=== PATIENT | male | born 1930 | race Caucasian/White ===

== ENCOUNTER 2017-11-21 12:56 | Inpatient (IN) | payer OTHER, BC ==
[~2017-11-21] VITALS: Ht 172.7 cm; Wt 56.6 kg
--- NOTE | ~2017-11-21 | EKG ---
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
--- NOTE | ~2017-11-21 | CATHLAB ---
[facility] [employer] [place] [address] INVASIVE PROCEDURE REPORT Name: MEGAN LUCAS Room #: 200-I ADM IN ..#: [id number] Admission: 11/21/17 Attend Phys: Wong Davidson MD Discharge: Date of : 34 Date of Service: 11/22/17 1450 Report #: [id number] THIS REPORT FOR: //name// APPROVED REPORT Study performed: 11/22/2017 09:36:19 Patient Status: In-Patient Room #: Event Personnel: Sin Kovacs Director Field Services, Amanda Neville RN RN, Maico Quintero Monitor, Carolyn Boone RTR, DOCK CLERK Scrub Exam: Insertion of Dual Chamber Permanent Pacemaker Indications: Complete Heart Block The patient is a 87 year-old male with a history of fatigue and newly diagnosed complete heart block.. Conscious Sedation Start time: 10.14 End Time: 11.16 Versed 2 mg demoral 25mgs ivp Implanted Devices: 1. Generator: [employer] model [id number] serial number [id number] 2. Atrial lead [employer]: Model 3592BF5/46 serial number [id number] 3. Ventricular lead: [employer] model 2088TC/54-year-old number [id number] Procedure The patient underwent informed consent. We discussed the details of the procedure including the risks, which include, but not limited to bleeding, infection, vascular damage, cardiac perforation, and pneumothorax. He understood these risks and was willing to proceed. As such, he was brought to the EP/Cardiac Catheterization laboratory in a fasting and sedated state and prepped and draped in a The patient underwent conscious sedation, with no related complications. The patient was brought to the EP/Cardiac Catheterization laboratory and the right chest and shoulder were prepped and draped in a sterile manner. During this case, Fluoroscopy and no contrast were used for imaging. The right subclavian region was infiltrated with 2% Lidocaine subcutaneous anesthesia. A transverse incision was made in the right [address] [address] INVASIVE PROCEDURE REPORT Name: MEGAN LUCAS Room #: 200-I [facility] IN ..#: [id number] Admission: 11/21/17 Attend Phys: Wong Davidson MD Discharge: Date of : 34 Date of Service: 11/22/17 1450 Report #: [id number] upper chest cavity. The subcutaneous pocket was formed via blunt dissection. Percutaneous venous access was achieved and an introducer sheath was inserted into the right Subclavian vein. Sheaths were positions using the modified Seldinger technique Through the introducer sheaths the atrial and ventricular lead wires were positioned in the right atrial appendage and right ventricular apex respectively. Capturing and sensing thresholds were verified. The ventricular lead was interrogated and knees are as below with significant current of injury which resolved with time No venogram was performed Electrode Parameters P Wave: 3.6 mV R Wave: 11.5 mV Atrial Threshold: 0.5. At a pulse width of 0.4 ms Ventricular Threshold: 0.75 V at 0.4 ms Atrial Resistance: 600 ohms Ventricular Resistance: 718 ohms Dual Chamber The atrial and ventricular leads were then secured using 2.0 ethibond sutures. The subcutaneous pocket was irrigated with ancef antibiotic solution.The atrial and ventricular leads were attached to the appropriate receptacles on the pulse generator and set screws firmly tightened to insure adequate contact and stability. The lead and pulse generator were placed into the subcutaneous pocket. Sharp and sponge counts were confirmed to be correct. At this time the pocket was closed subcutaneously with a 2.0 Nurolon and the skin was closed with a 3.0 Vicryl. The operative site was dressed in sterile fashion with steri strips, 4 x 4 and OpSite and the patient was transferred to the floor in stable condition. Complications The patient tolerated the procedure well and there were no complications associated with the procedure. Findings Specimens Removed: No Conclusion 1. Successful implantation of a dual-chamber pacemaker via the right innominate vein [facility] [address] [place] [address] INVASIVE PROCEDURE REPORT Name: MEGAN LUCAS Room #: 200-I [facility] IN .R.#: [id number] Admission: 11/21/17 Attend Phys: Wong Davidson MD Discharge: Date of : 34 Date of Service: 11/22/17 1450 Report #: [id number] Recommendations 1. Routine post pacer implantation protocol <ELECTRONICALLY SIGNED> By: Sin Kovacs MD 11/22/171449 49 49 Sin Kovacs MD /INF
--- NOTE | ~2017-11-21 | 2DMMODE ---
[facility] [address] [place] [address] 2 D/M-MODE ECHOCARDIOGRAM Name: MEGAN LUCAS Room #: 200-I ADM IN ..#: [id number] Admission: 11/21/17 Attend Phys: Wong Davidson MD Discharge: Date of : 34 Date of Service: 11/22/17 1507 Report #: [id number] THIS REPORT FOR: //name// APPROVED REPORT Study performed: 11/22/2017 13:31:05 EXAM: Comprehensive 2D, Doppler, and color-flow Echocardiogram Patient Location: Bedside Room #: 200 Status: routine BSA: 1.70 HR: 60 bpm BP: 210/100 mmHg Other Information Study Quality: Adequate Technically limited study due to pectus, limited mobility. Low parasternal window. Indications Complete heart block status post pacemaker 11/22/2017. 2D Dimensions RVDd: 36.39 mm LVEF(%): 58.98 (>50%) IVSd: 11.22 (7-11mm) LVOT Diam: 21.97 (18-24mm) LVDd: 40.14 mm PWd: 10.15 (7-11mm) Ascending Ao: 41.88 (22-36mm) LVDs: 27.77 (25-40mm) Aortic Root: 41.58 mm Jurado's LVEF: 58.98 % Volumes Left Atrial Volume (Systole) Single Plane 4CH: 37.24 mL Single Plane 2CH: 25.99 mL LA ESV Index: 19.00 mL/m2 Aortic Valve AoV Peak Bishop.: 0.87 m/s AO Peak Gr.: 3.03 mmHg LVOT Max P.67 mmHg LVOT Max V: 0.82 m/s RHIANNA Vmax: 3.56 cm2 Mitral Valve E/A Ratio: 0.8 [facility] [place] [address] 2 D/M-MODE ECHOCARDIOGRAM Name: MEGAN LUCAS Room #: 200-I ADM IN .R.#: [id number] Admission: 11/21/17 Attend Phys: Wong Davidson MD Discharge: Date of : 34 Date of Service: 11/22/17 1507 Report #: [id number] MV Decel. Time: 333.65 ms MV E Max Bishop.: 0.55 m/s MV A Bishop.: 0.73 m/s MV PHT: 96.76 ms Tricuspid Valve TR Peak Bishop.: 2.66 m/s RAP Estimate: 5.00 mmHg TR Peak Gr.: 28.21 mmHg PA Pressure: 33.00 mmHg Left Ventricle The left ventricle is normal size. Paradoxical septal motion consistent with paced rhythm. There is normal left ventricular wall thickness. Left ventricular systolic function is normal. LVEF is >55%. Mild diastolic dysfunction is present (impaired relaxation pattern). Right Ventricle The right ventricle is normal size. The right ventricular systolic function is normal. Pacemaker lead is present in the right ventricle. Atria The left atrium size is normal. The right atrium size is normal. Aortic Valve The aortic valve is not well visualized. Mild aortic regurgitation. There is no aortic valvular stenosis. Mitral Valve The mitral valve is normal in structure. Trace to mild mitral regurgitation. Tricuspid Valve The tricuspid valve is normal in structure. Mild tricuspid regurgitation. Estimated PAP is 33mmHg. Pulmonic Valve Pulmonic valve is not well visualized. 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 Ascending aorta is not well visualized. IVC is normal in size and collapses >50% with inspiration. Pericardium [facility] [address] [place] [address] 2 D/M-MODE ECHOCARDIOGRAM Name: MEGAN LUCAS Room #: 200-I [facility] IN .R.#: [id number] Admission: 11/21/17 Attend Phys: Wong Davidson MD Discharge: Date of : 34 Date of Service: 11/22/17 1507 Report #: [id number] There is no pericardial effusion. <Conclusion> The left ventricle is normal size. LVEF is >55%. Pacemaker lead is present in the right ventricle. The aortic valve is not well visualized. Mild aortic regurgitation. The mitral valve is normal in structure. Trace to mild mitral regurgitation. The tricuspid valve is normal in structure. Mild tricuspid regurgitation. Estimated PAP is 33mmHg. 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 Ascending aorta is not well visualized. There is no pericardial effusion. <ELECTRONICALLY SIGNED> By: Sin Kovacs MD 11/22/17 1507 1507 150 Sin Kovacs MD /INF
[2017-11-21 13:16] VITALS: BP 168/77
[2017-11-21 17:26] VITALS: BP 183/69
[2017-11-21 17:56] LABS: HEMATOCRIT 39.5 % (42.0-52.0); HEMOGLOBIN 13.2 gm/dL (14.0-18.0); MCHC 33.5 g/dL (28.0-37.0); MCV 86.6 fL (80.0-100.0); RBC 4.56 mil/uL (4.50-6.00); RDW 14.5 % (10.5-14.5); WBC 6.7 thou/uL (4.0-11.0)
[2017-11-21 18:09] LABS: CALCIUM 8.6 mg/dL (8.5-10.1); CREATININE 0.8 mg/dL (0.7-1.3); POTASSIUM 4.3 mmol/L (3.5-5.1)
[2017-11-21 18:38] LABS: ABSOLUTE NEUTROPHILS 4.1 thou/uL (1.4-8.2); PLATELET COUNT 84 thou/uL (150-400); PLATELET ESTIMATE DECREASED
[2017-11-21 19:29] VITALS: BP 106/85
[2017-11-21 20:52] VITALS: BP 159/82
[2017-11-22] VITALS (7 sets, daily range): BP systolic 139–210; BP diastolic 70–100
[2017-11-22 04:21] LABS: CALCIUM 8.5 mg/dL (8.5-10.1); CREATININE 0.8 mg/dL (0.7-1.3); HEMATOCRIT 40.8 % (42.0-52.0); HEMOGLOBIN 13.5 gm/dL (14.0-18.0); MCH 28.8 pg (26.0-34.0); MCHC 33.2 g/dL (28.0-37.0); MCV 86.7 fL (80.0-100.0); POTASSIUM 3.7 mmol/L (3.5-5.1); RBC 4.7 mil/uL (4.50-6.00); RDW 14.2 % (10.5-14.5)
[2017-11-22 06:09] LABS: FOLIC ACID 31.3 ng/mL (8.6-58.9)
[2017-11-23 02:55] LABS: HEMATOCRIT 40.4 % (42.0-52.0); HEMOGLOBIN 13.6 gm/dL (14.0-18.0); MCH 28.9 pg (26.0-34.0); MCHC 33.6 g/dL (28.0-37.0); PLATELET COUNT 84 thou/uL (150-400); RDW 14.7 % (10.5-14.5); WBC 7.1 thou/uL (4.0-11.0)
[2017-11-23 03:05] LABS: CALCIUM 8.2 mg/dL (8.5-10.1); CREATININE 0.8 mg/dL (0.7-1.3); POTASSIUM 3.7 mmol/L (3.5-5.1)
[2017-11-23 03:21] LABS: ABSOLUTE NEUTROPHILS 4.9 thou/uL (1.4-8.2); PLATELET ESTIMATE DECREASED
[2017-11-23 04:00] VITALS: BP 114/82
[2017-11-23 12:00] VITALS: BP 136/78
[2017-11-23 13:03] LABS: URINE BLOOD 3+ (Negative); URINE GLUCOSE-RANDOM* NEGATIVE (Negative); URINE KETONES 1+ (Negative); URINE LEUKOCYTES-REFLEX NEGATIVE (Negative); URINE NITRITE-REFLEX NEGATIVE (Negative); URINE PROTEIN (DIPSTICK) 2+ (Negative); URINE SPECIFIC GRAVITY >= 1.030 (1.005-1.035)
[2017-11-23 13:05] LABS: URINE CLARITY TURBID; URINE COLOR RED
[2017-11-23 13:06] LABS: ICTOTEST (BILI CONFIRMATORY) Negative (Negative); URINE BILIRUBIN NEGATIVE (Negative)
[2017-11-23 13:21] LABS: BACTERIA-REFLEX None Seen /HPF (None Seen); CASTS None Seen /LPF (None Seen); CRYSTALS None Seen /LPF (None Seen); SQUAMOUS 0-3 Few /LPF (0-3); URINE RBC >20 Many /HPF (0-2); URINE WBC-REFLEX 0-5 Rare /HPF (0-5)
[2017-11-23 13:22] LABS: MUCUS 4-6 Moderate strn/LPF (None Seen)
[2017-11-23 16:15] VITALS: BP 159/89
[2017-11-23 20:07] VITALS: BP 147/91
[2017-11-24 03:55] LABS: HEMATOCRIT 36.5 % (42.0-52.0); HEMOGLOBIN 12.2 gm/dL (14.0-18.0); MCH 28.8 pg (26.0-34.0); MCHC 33.5 g/dL (28.0-37.0); MCV 86.1 fL (80.0-100.0); PLATELET COUNT 84 thou/uL (150-400); RBC 4.24 mil/uL (4.50-6.00); RDW 13.9 % (10.5-14.5); WBC 6.7 thou/uL (4.0-11.0)
[2017-11-24 04:28] LABS: CALCIUM 8.3 mg/dL (8.5-10.1); CREATININE 0.7 mg/dL (0.7-1.3); POTASSIUM 3.9 mmol/L (3.5-5.1)
[2017-11-24 04:30] LABS: ABSOLUTE NEUTROPHILS 3.6 thou/uL (1.4-8.2); PLATELET ESTIMATE DECREASED
[2017-11-24 04:39] VITALS: BP 138/83
[2017-11-24 08:04] VITALS: BP 142/89
[2017-11-24 11:35] VITALS: BP 151/91
[2017-11-24 21:11] VITALS: BP 152/90
[2017-11-25 04:41] VITALS: BP 148/85
[2017-11-25 07:52] VITALS: BP 166/92
[2017-11-25 11:00] VITALS: BP 140/81
[2017-11-25 15:30] VITALS: BP 151/87
[2017-11-25 19:04] VITALS: BP 188/96
[2017-11-26 05:35] VITALS: BP 172/92
[2017-11-26 08:15] VITALS: BP 165/98
[2017-11-26 11:38] VITALS: BP 164/85
[2017-11-26 16:10] VITALS: BP 142/89
[2017-11-26 19:13] VITALS: BP 141/94
[2017-11-26] MEDS ORDERED: COLACE 100 MG100 MG PO (19:23)
[2017-11-26] MEDS ORDERED: NIFEDIPINE ER30 M1 PO (19:23)
[2017-11-26] MEDS ORDERED: MIRALAX17 GM PO (19:23)
[2017-11-26] MEDS ORDERED: ACETAMINOPHEN325 M1 PO (19:23)
[2017-11-26] MEDS ORDERED: BISAC-EVAC10 MG RECTAL (19:23)
[2017-11-26 19:55] VITALS: BP 141/94
== END 2017-11-26 20:41 | disposition home or self-care (01) | DRG 242 ==
LOC: ER 12:56 → 2N 18:15 → EROBS 18:15 → 2N 18:41
PROVIDERS: Emergency Medicine; Hospitalist
PROC: 02H63JZ Insertion of Pacemaker Lead into Right Atrium, Percutaneous Approach (ICD-10-PCS; principal; 2017-11-22)
PROC: 02HK3JZ Insertion of Pacemaker Lead into Right Ventricle, Percutaneous Approach (ICD-10-PCS; principal; 2017-11-22)
PROC: 0JH606Z Insertion of Pacemaker, Dual Chamber into Chest Subcutaneous Tissue and Fascia, Open Approach (ICD-10-PCS; principal; 2017-11-22)
DX: I44.2 Atrioventricular block, complete (principal); E43 Unspecified severe protein-calorie malnutrition; K92.2 Gastrointestinal hemorrhage, unspecified; Z68.1 Body mass index [BMI] 19.9 or less, adult; K56.41 Fecal impaction; I10 Essential (primary) hypertension; D69.6 Thrombocytopenia, unspecified; Z60.2 Problems related to living alone; F03.90 Unspecified dementia, unspecified severity, without behavioral disturbance, psychotic disturbance, mood disturbance, and anxiety; R45.1 Restlessness and agitation; R41.0 Disorientation, unspecified; Z79.899 Other long term (current) drug therapy
CPT/HCPCS: 10081; 10797

== ENCOUNTER → 2017-11-30 | Outpatient (CLI) | payer OTHER, BC ==
[~2017-11-30] VITALS: Ht 170.2 cm; Wt 58.7 kg
[~2017-11-30] MED LIST: ACETAMINOPHEN325 M1 PO; BISAC-EVAC10 MG RECTAL; COLACE 100 MG100 MG PO; MIRALAX17 GM PO; NIFEDIPINE ER30 M1 PO
[2017-11-30 13:33] VITALS: BP 157/81
== END ==
LOC: SEN 09:02
DX: K59.00 Constipation, unspecified (principal); F17.200 Nicotine dependence, unspecified, uncomplicated; Z72.89 Other problems related to lifestyle

== ENCOUNTER 2018-04-28 02:39 | Emergency (ER) | payer OTHER, BC ==
[~2018-04-28] VITALS: Ht 175.3 cm; Wt 56.7 kg
[2018-04-28 05:42] LABS: URINE BILIRUBIN NEGATIVE (Negative); URINE BLOOD TRACE (Negative); URINE CLARITY CLEAR; URINE COLOR YELLOW; URINE GLUCOSE-RANDOM* NEGATIVE (Negative); URINE KETONES NEGATIVE (Negative); URINE LEUKOCYTES-REFLEX NEGATIVE (Negative); URINE NITRITE-REFLEX NEGATIVE (Negative); URINE PROTEIN (DIPSTICK) NEGATIVE (Negative); URINE UROBILINOGEN 0.2 E.U./dl (0.2-1.0)
[2018-04-28] MEDS ORDERED: MIRALAX17 GM PO (06:26)
[2018-04-28 07:10] VITALS: BP 186/86
== END 2018-04-28 07:12 | disposition home or self-care (01) ==
LOC: ER 02:39
PROVIDERS: Emergency Medicine
DX: R33.9 Retention of urine, unspecified (principal); K59.00 Constipation, unspecified; F03.90 Unspecified dementia, unspecified severity, without behavioral disturbance, psychotic disturbance, mood disturbance, and anxiety; Z85.6 Personal history of leukemia